=== PATIENT | female | born 1935 | race African-American/Black ===

== ENCOUNTER 2016-06-07 13:32 | Emergency (ER) | payer OTHER ==
[2016-06-07] MEDS ORDERED: NS 500 ML IV ONE (14:34)
--- NOTE | 2016-06-07 14:39 | PROVIDER DOCUMENTATION ---
HPI-Abdominal Pain/GI Problem - General Chief Complaint: Abdominal Pain Stated Complaint: abd pain Time Seen by Provider: 06/07/16 14:27 Allergies/Adverse Reactions: Patient Allergies Allergy/AdvReac Type Severity Reaction Status Date / Time Sulfa (Sulfonamide Allergy RASH Verified 06/07/16 15:12 Antibiotics) Home Medications: Home Medication List Medication Instructions Recorded Confirmed Last Taken Type Losartan [Cozaar] 100 mg PO DAILY 01/23/15 06/07/16 06/07/16 History Ferrous Sulfate 325 mg PO DAILY 02/12/15 06/07/16 06/07/16 History Metformin [Glucophage] 500 mg PO DAILY 02/12/15 06/07/16 06/07/16 History ROSUVAstatin [Crestor] 10 mg PO DAILY 02/12/15 06/07/16 06/07/16 History Docusate Sodium [Colace] 100 mg PO BID #30 capsule 02/20/15 06/07/16 Unknown Rx Hydrocodone/APAP 7.5 mg/325 mg 1 each PO Q4H PRN PRN #30 tablet 02/20/15 Unknown Rx [[place]-7.5] Polyethylene Glycol 3350 [Miralax] 17 gm PO BID #30 powder, packet 02/20/15 Unknown Rx Potassium Chloride [Klor-Con 10 meq PO DAILY #30 capsule.er 02/20/15 06/07/16 Rx Sprinkle] Levothyroxine Sodium [Synthroid] 75 mcg PO DAILY 06/07/16 06/07/16 06/07/16 History Metoclopramide [Reglan] 10 mg PO AC + HS #40 tablet 06/07/16 Unknown Rx Omeprazole 40 mg PO DAILY #30 capsule. 06/07/16 Unknown Rx Sucralfate [Carafate] 1 gm PO 4XDAY #40 tablet 06/07/16 Unknown Rx - History of Present Illness-ABD Nature of Presenting Problems: Pt with epigastric abd pains for several months with diarrhea noted after eating. Today she had some pains and difficulty walking--has diffuse weakness still. No fevers, vomiting nor constipation. Abdominal Pain Onset Location: reports: epigastric Pain Radiation: reports: LUQ Quality of Pain: reports: aching, cramping Severity in ED: reports: mild Onset/Duration: reports: other Timing: reports: gone now, intermittent Associated Symptoms: reports: diarrhea, loss of appetite, weakness, trouble walking. denies: constipation, fever/chills, genitourinary problems, nausea, shortness of breath, vomiting Last BM: this morning Dark Stools Present?: reports: none noticed Similar Symptoms Previously?: Yes Recently seen or treated by another doctor?: No Review of Systems - Adult - REVIEW OF SYSTEMS - ADULT Constitutional: denies: chills, fever Eyes: reports: no symptoms reported Ears, Nose, Mouth & Throat: reports: no symptoms reported Cardiovascular: denies: chest pain, syncope Respiratory: denies: cough, shortness of breath Gastrointestinal: reports: abdominal pain, diarrhea. denies: hematemesis, constipation, nausea, rectal bleeding, vomiting Genitourinary: denies: dysuria, frequency Musculoskeletal: reports: muscle weakness. denies: back pain, joint pain Integumentary: reports: no symptoms reported Neurological: reports: other (weakness-non focal). denies: dizziness/vertigo, slurred speech, syncope Psychiatric: reports: no symptoms reported Endocrine: reports: no symptoms reported Hematologic/Lymphatic: reports: no symptoms reported Allergic/Immunologic: reports: no symptoms reported All Other Systems: Reviewed and Negative Past History - Adult - PAST MEDICAL HISTORY-ADULT Review of Records: reports: Nursing Assessment Review, Medications Reviewed Cardiovascular: reports: hyperlipidemia Respiratory: reports: asthma Gastrointestinal: reports: other (constipation) Endocrine/Immune: reports: thyroid disorder (hypo) - PRIOR SURGERIES/PROCEDURES Surgical/Procedure History: reports: cholecystectomy, hysterectomy - IMMUNIZATION STATUS Childhood Immunizations: See Nurse Assessment Flu Vaccine: See Nurse Assessment - SOCIAL HISTORY Smoking: non-smoker Physical Exam-General - PHYSICAL EXAM-ADULT Initial Vital Signs Reviewed: Yes - CONSTITUTIONAL General Appearance: appears well, alert, no apparent distress - EYES Eyes: PERRL/EOMI, pink conjunctivae - HEAD, EARS, NOSE, MOUTH & THROAT HENMT: normocephalic/atraumatic, moist mucous membranes, normal ENT inspection - NECK Neck: non-tender, full range of motion, supple - RESPIRATORY Respiratory: chest non-tender, lungs clear, normal breath sounds - CARDIOVASCULAR Cardiovascular: normal peripheral pulses, no edema, tachycardia - GASTROINTESTINAL (ABDOMEN) Abdominal Exam: normal bowel sounds, soft, no organomegaly, no pulsatile mass, tenderness (moderate LUQ, epigastric area). negative: distended, guarding, rigid, mass, Williamson's sign - LYMPHATIC Lymphatic: no adenopathy. negative: enlargement - MUSCULOSKELETAL Back Exam: normal inspection, no CVA tenderness, no vertebral tenderness Extremity: normal range of motion, non-tender, normal inspection - SKIN Integumentary: normal color, warm/dry, other (poor turgor) - NEUROLOGIC Neurologic: grossly normal. negative: facial droop, focal weakness - PSYCHIATRIC Psych/Mental Status: normal mood/affect Progress - PLAN OF CARE/RESULTS Progress/Plan/Lab Results: Vital Signs Temp Pulse Pulse Pulse Pulse Resp BP 06/07/16 17:09 98 F 78 20 124/63 06/07/16 14:56 101 H 103 H 104 H 06/07/16 13:36 98.0 F 113 H 20 107/91 BP BP BP Pulse Ox 06/07/16 17:09 100 06/07/16 14:56 128/65 131/54 115/62 06/07/16 13:36 98 Sulfa (Sulfonamide Antibiotics) Allergy (Verified 06/07/16 15:12) RASH Losartan [Cozaar] 100 mg PO DAILY 01/23/15 Ferrous Sulfate 325 mg PO DAILY 02/12/15 Metformin [Glucophage] 500 mg PO DAILY 02/12/15 ROSUVAstatin [Crestor] 10 mg PO DAILY 02/12/15 Docusate Sodium [Colace] 100 mg PO BID #30 capsule 02/20/15 Hydrocodone/APAP 7.5 mg/325 mg [[place]-7.5] 1 each PO Q4H PRN PRN #30 tablet 02/24 Polyethylene Glycol 3350 [Miralax] 17 gm PO BID #30 powder, packet 02/20/15 Potassium Chloride [Klor-Con Sprinkle] 10 meq PO DAILY #30 capsule.er 02/20/15 Levothyroxine Sodium [Synthroid] 75 mcg PO DAILY 06/07/16 I&O 06/06/16 06/07/16 06/08/16 06:59 06:59 06:59 Output Total 5 Balance -5 Laboratory 06/07/16 06/07/16 06/07/16 15:00 15:00 15:00 WBC 7.09 RBC 4.84 Hgb 13.3 Hct 36.7 L MCV 75.8 L MCH 27.5 MCHC 36.2 RDW Std Deviation 15.3 H Plt Count 333 MPV 9.1 Immature Gran % (Auto) 0.3 Neut % (Auto) 78.5 H Lymph % (Auto) 12.3 L [place] % (Auto) 7.8 Eos % (Auto) 0.8 Baso % (Auto) 0.3 Immature Gran # (Auto) 0.02 Neut # (Auto) 5.57 Lymph # (Auto) 0.87 L [place] # (Auto) 0.55 Eos # (Auto) 0.06 Baso # (Auto) 0.02 Sodium 138 Potassium 3.9 Chloride 98 Carbon Dioxide 27 Anion Gap 13 BUN 17 Creatinine 0.7 Estimated GFR/1.73 m2 > 60 BUN/Creatinine Ratio 24 Glucose 137 H Calculated Osmolality 279 Calcium 9.5 Total Bilirubin 0.25 AST 15 ALT 8 L Alkaline Phosphatase 84 Total Protein 7.4 Albumin 4.4 Globulin 3.0 Albumin/Globulin Ratio 1.5 Amylase 57 Lipase 56 Urine Source CLEAN CATCH Urine Color YELLOW Urine Clarity CLEAR Urine pH 5.5 Ur Specific [place] 1.025 Urine Protein NEGATIVE Urine Ketones NEGATIVE Urine Blood NEGATIVE Urine Nitrite NEGATIVE Urine Bilirubin NEGATIVE Urine Urobilinogen 0.2 Urine Microscopic RBC <10 Urine WBC NEGATIVE Urine Microscopic WBC <10 Ur Epithelial Cells <10 Urine Bacteria NEGATIVE Urine Glucose NEGATIVE - XRAY 1 XRAY Study: Chest, Abdomen Impression: Normal - CT/MRI 1 CT Study: Abdomen, Pelvis Impression: Abnormal (atrium gastritis), Discussed w/Radiology - CONSULTS/PCP/HOSPITALIST Notification #1 *Consult/PCP/Hospitalist*: Agata Time Discussed: 17:39 Consult Disposition: F/U in office Departure - Departure Time of Disposition Order: 17:39 DIAGNOSIS: Abdominal pain, epigastric Acute gastritis without bleeding Qualifiers: Gastritis type: unspecified gastritis Qualified Code(s): K29.00 - Acute gastritis without bleeding Disposition: HOME 01 Certified Medical Emergency: Emergent Condition: Stable Additional Instructions: See Dr Parmar this week. ED Follow Up Instructions: You have been treated by a care provider in the Emergency Department. These instructions are being provided to you so you can have an understanding of how to care for yourself upon discharge. Upon discharge from the Emergency Department, you are responsible for making arrangements for follow-up care by a physician of your choice. Take all prescribed medications as directed. Return to the Emergency Department immediately for any new or worsening symptoms. You may call the Physician Referral phone number at [phone] to obtain a list of Physicians who are taking new patients. Prescriptions: Sucralfate [Carafate] 1 gm PO 4XDAY #40 tablet Omeprazole 40 mg PO DAILY #30 capsule. Metoclopramide [Reglan] 10 mg PO AC + HS #40 tablet
--- NOTE | 2016-06-07 15:16 | Diag Imaging Result Document ---
PROCEDURE NAME: FLAT/UPRIGHT ABD/1 VIEW CHEST - 06/07/2016 FLAT AND UPRIGHT ABDOMEN: FINDINGS: There are surgical clips in the gallbladder fossa. There is calcification of the aorta which does not appear to be distended, but is tortuous. There is no evidence of bowel obstruction, organomegaly or mass. IMPRESSION: Nonspecific abdomen. AP UPRIGHT CHEST: FINDINGS: There are some grouped, nodular and ill-defined opacities in the left upper lobe. This was also present on 02/16/2015, and may be related to previous granulomatous disease. Otherwise, the lungs are clear and the heart and pulmonary vascularity are within normal limits. IMPRESSION: No acute disease.
[2016-06-07 15:17] LABS: MANUAL DIFF NEEDED? NO; URINE SOURCE CLEAN CATCH
[2016-06-07 15:24] LABS: BASO% 0.3 % (0.0-0.8); EOS# 0.06 X1000 (0.0-0.7); EOS% 0.8 % (0.0-10.0); HEMATOCRIT 36.7 % (37.0-47.0); HEMOGLOBIN 13.3 g/dL (12.0-16.0); IMM GRAN# 0.02 X1000 (0.0-0.04); IMM GRAN% 0.3 % (0.0-0.5); LYMPH# 0.87 X1000 (1.2-3.4); LYMPH% 12.3 % (20.5-51.1); MCH 27.5 PG (27-31); MCHC 36.2 g/dL (33-37); MCV 75.8 FL (81-99); MONO# 0.55 X1000 (0.11-0.59); MONO% 7.8 % (1.7-9.3); MPV 9.1 FL (7.4-10.4); NEUT% 78.5 % (42.2-75.2); PLT 333 X1000 (130-400); RBC 4.84 XMIL (4.2-5.4)
[2016-06-07 15:26] LABS: BILIRUBIN URINE NEGATIVE (NEGATIVE); BLOOD URINE NEGATIVE (NEGATIVE); CLARITY CLEAR (CLEAR); COLOR YELLOW; GLUCOSE URINE NEGATIVE (NEGATIVE); LEUKOCYTES URINE NEGATIVE (NEGATIVE); NITRITE URINE NEGATIVE (NEGATIVE); PH URINE 5.5; PROTEIN URINE NEGATIVE (NEGATIVE); SP GRAVITY URINE 1.025; UROBILINOGEN URINE 0.2 EU/dL (0.2-1.0)
[2016-06-07 15:33] LABS: URINE EPITHELIAL CELLS <10 /HPF (<10); URINE RBC <10 /HPF (<10); URINE WBC <10 /HPF (<10)
[2016-06-07 15:44] LABS: AGAP 13; ALBUMIN 4.4 g/dL (3.5-5.0); ALKALINE PHOSPHATASE 84 U/L (32-104); AMYLASE 57 U/L (20-200); BUN 17 mg/dL (8-22); CALCIUM 9.5 mg/dL (8.8-10.2); CHLORIDE 98 mmol/L (98-107); COSMO 279; GOT 15 U/L (10-30); GPT 8 U/L (10-36); LIPASE 56 U/L (13-60); POTASSIUM 3.9 mmol/L (3.5-5.1); SODIUM 138 mmol/L (136-145); TCO2 27 mmol/L (25-35); TOTAL BILIRUBIN 0.25 mg/dL (0.20-1.00); TOTAL PROTEIN 7.4 g/dL (6.3-8.3)
[2016-06-07 17:09] VITALS: BP 124/63
--- NOTE | 2016-06-07 17:24 | Diag Imaging Result Document ---
PROCEDURE NAME: ABDOMEN/PELVIS W/CONTRAST - 06/07/2016 CT OF THE ABDOMEN WITH INTRAVENOUS AND ORAL CONTRAST: FINDINGS: There is apparent fibrosis with some calcification in the right lower lobe. This may be residual from the pneumonia present on the previous CT of the chest dated 05/15/2013. The pleural effusions which were present at that time are no longer present. There are calcifications in the aorta. No evidence of aneurysm is present, and the mesenteric vessels are patent. There has been cholecystectomy. The spleen and adrenal glands are not enlarged. The pancreas is within normal limits. The kidneys are without evidence of hydronephrosis or mass. There is some biliary dilatation in the liver. This is more apparent than on the previous chest CT. There are no previous abdominal studies. The common bile duct does not appear to be distended and at the level of the pancreatic head measures only 4 mm. There is some retained food in the stomach. There is some apparent thickening of the gastric mucosa in the antrum. The small bowel is not distended, and there is no evidence of obstruction or mucosal thickening in the colon. No significant adenopathy is present. CT OF THE PELVIS WITH INTRAVENOUS CONTRAST: FINDINGS: There is no evidence of appendicitis. There is marked sigmoid diverticulosis without definite evidence of diverticulitis. There has been hysterectomy. There is some stool in the rectosigmoid colon. IMPRESSION: 1. Possible antral gastritis. 2. Intrahepatic biliary dilatation of uncertain significance.
[2016-06-07] MEDS ORDERED: SODIUM CHLORIDE 0.9% INJ ONE (17:44)
[2016-06-07] MEDS ORDERED: PROTONIX IV ONE (17:44)
== END 2016-06-07 17:55 | disposition home or self-care (01) ==
LOC: ED 13:32
DX: K29.00 Acute gastritis without bleeding (principal); R10.13 Epigastric pain; R10.12 Left upper quadrant pain; R19.7 Diarrhea, unspecified; M62.81 Muscle weakness (generalized); E78.5 Hyperlipidemia, unspecified; E03.9 Hypothyroidism, unspecified; R00.0 Tachycardia, unspecified; Z79.899 Other long term (current) drug therapy
CPT/HCPCS: 74022; 74177; 80053; 81001; 82150; 83690; 85025; J7040; Q9967

== ENCOUNTER 2018-07-07 14:35 | Inpatient (IN) ==
[2018-07-07] MEDS ORDERED: ASPIRIN PO ONE (14:46)
--- NOTE | 2018-07-07 14:49 | EKG Report ---
Test Performed on : 07/07/2018 2:43:13 PM Test Reason : cp Blood Pressure : / mmHG Vent. Rate : 106 BPM Atrial Rate : 106 BPM P-R Int : 174 ms QRS Dur : 116 ms QT Int : 348 ms P-R-T Axes : 053 -14 051 degrees QTc Int : 462 ms Sinus tachycardia. with occasional premature ventricular complexes. Possible Left atrial enlargement Septal infarct , age undetermined ST & T wave abnormality, consider lateral ischemia Abnormal ECG When compared with ECG of 15-FEB-2018 14:25, premature ventricular complexes. are now present Left bundle branch block is no longer present Septal infarct is now present Unconfirmed Result
--- NOTE | 2018-07-07 15:08 | Diag Imaging Result Doc PS360 ---
EXAM: CHEST-2 VIEWS 07/07/2018 HISTORY: cp TECHNIQUE: Two views the chest COMMENT: There is nodular and linear opacity in the left upper lobe which is similar in appearance to 02/13/2018. There may be COPD. The heart size and pulmonary vascularity are within normal limits. IMPRESSION: Chronic left upper lobe opacities. Electronically signed by Ramone Akins 07/07/2018 3:06 PM
[2018-07-07] MEDS ORDERED: DUONEB (A & A) INH ONE (15:22)
[2018-07-07] MEDS ORDERED: MAGNESIUM SULFATE 1 GM/D5W 1 GM/100 ML IVPB IV ONE (15:22)
[2018-07-07 15:25] LABS: BASO# 0.03 X1000 (0.0-0.2); BASO% 0.5 % (0.0-0.8); EOS# 0.07 X1000 (0.0-0.7); EOS% 1.1 % (0.0-10.0); HEMATOCRIT 36.5 % (37.0-47.0); HEMOGLOBIN 12.8 g/dL (12.0-16.0); IMM GRAN# 0.01 X1000 (0.0-0.04); IMM GRAN% 0.2 % (0.0-0.5); LYMPH# 1.11 X1000 (1.2-3.4); LYMPH% 17.7 % (20.5-51.1); MCH 27.8 PG (27-31); MCHC 35.1 g/dL (33-37); MCV 79.2 FL (81-99); MONO# 0.49 X1000 (0.11-0.59); MONO% 7.8 % (1.7-9.3); MPV 9.7 FL (7.4-10.4); NEUT# 4.57 X1000 (1.4-6.5); NEUT% 72.7 % (42.2-75.2); PLT 298 X1000 (130-400); RBC 4.61 XMIL (4.2-5.4); RDW 15.5 % (11.5-14.5); WBC 6.28 X1000 (4.8-10.8)
[2018-07-07] MEDS ORDERED: SOLU-MEDROL IV SCH (15:30)
[2018-07-07 15:37] LABS: AGAP 11; ALBUMIN 4.1 g/dL (3.5-5.0); ALKALINE PHOSPHATASE 137 U/L (32-104); BUN 12 mg/dL (8-22); CALCIUM 8.8 mg/dL (8.8-10.2); CHLORIDE 100 mmol/L (98-107); CK PROFILE 82 U/L (24-173); COSMO 290; CREATININE 0.8 mg/dL (0.5-0.9); ESTIMATED GFR > 60; GLUCOSE 253 mg/dL (70-104); GOT 12 U/L (10-30); GPT 9 U/L (10-36); POTASSIUM 4.5 mmol/L (3.5-5.1); SODIUM 141 mmol/L (136-145); TCO2 29 mmol/L (25-35); TOTAL PROTEIN 7.2 g/dL (6.3-8.3)
[2018-07-07 15:38] LABS: INR 0.85
[2018-07-07 15:39] LABS: PTT 32.8 Seconds (22.3-41.8)
--- NOTE | 2018-07-07 16:10 | PROVIDER DOCUMENTATION ---
This chart was entered by Deidre Skaggs Scribe, acting as scribe for Emperatriz Casarez MD. HPI-Chest Pain - General Chief Complaint: Chest Pain Stated Complaint: CHEST PAIN Time Seen by Provider: 07/07/18 15:14 Source: patient Allergies/Adverse Reactions: Patient Allergies Allergy/AdvReac Type Severity Reaction Status Date / Time Sulfa (Sulfonamide Allergy RASH Verified 07/07/18 14:45 Antibiotics) Home Medications: Home Medication List Medication Instructions Recorded Confirmed Last Taken Type Losartan [Cozaar] 100 mg PO DAILY 01/23/15 02/12/18 06/07/16 History ROSUVAstatin [Crestor] 10 mg PO QHS 02/12/15 02/12/18 06/07/16 History Albuterol Sulfate [Ventolin Hfa] 2 inh INH PRN PRN 02/12/18 02/12/18 Unknown History Azithromycin 500 mg PO DAILY 02/12/18 02/12/18 Unknown History Docusate Sodium [Colace] 100 mg PO TID 02/12/18 02/12/18 Unknown History Glimepiride 1 mg PO DAILY 02/12/18 02/12/18 Unknown History Levothyroxine [Synthroid] 125 microgm PO DAILY@0600 02/12/18 02/12/18 Unknown History Omeprazole 40 mg PO DAILY@0600 02/12/18 02/12/18 Unknown History Potassium Chloride 20 meq PO DAILY 02/12/18 02/12/18 Unknown History - History of Present Illness-CP Nature of Presenting Problem: Patient is a 80 year old female who presents to the ED with chest pain. Patient states shortness of breath and cough. Patient states symptoms started this afternoon. Patient's son states history of asthma and chronic bronchitis. Location: reports: central Chest Pain Radiation: reports: no radiation Quality of Pain: reports: tightness Severity in ED: mild Onset/Duration: this afternoon Timing: still present Context/Activities at Onset: reports: light activity Associated Symptoms: reports: shortness of breath Similar Symptoms Previously?: No Recently Seen Here or By Another Healthcare Provider: No Review of Systems - Adult - REVIEW OF SYSTEMS - ADULT Constitutional: reports: no symptoms reported Eyes: reports: no symptoms reported Ears, Nose, Mouth & Throat: reports: no symptoms reported Cardiovascular: reports: chest pain. denies: heart murmur, irregular heart rate Respiratory: reports: cough, shortness of breath. denies: wheezing Gastrointestinal: reports: no symptoms reported Genitourinary: reports: no symptoms reported Musculoskeletal: reports: no symptoms reported Integumentary: reports: no symptoms reported Neurological: reports: no symptoms reported Psychiatric: reports: no symptoms reported Endocrine: reports: no symptoms reported Hematologic/Lymphatic: reports: no symptoms reported Allergic/Immunologic: reports: no symptoms reported All Other Systems: Reviewed and Negative Past History - Adult - PAST MEDICAL HISTORY-ADULT Review of Records: reports: Nursing Assessment Review, Medications Reviewed, Social history reviewed & non-contributory. Major Childhood Illnesses: reports: denies history Cardiovascular: reports: HTN, hyperlipidemia Respiratory: reports: asthma, bronchitis Gastrointestinal: reports: other (constipation) Obstetrical/Gynecological: reports: denies history Genitourinary: reports: denies history Musculoskeletal: reports: denies history Neurological: reports: denies history Endocrine/Immune: reports: Diabetes, thyroid disorder (hypo) Other Conditions: reports: denies history - PRIOR SURGERIES/PROCEDURES Surgical/Procedure History: reports: cholecystectomy, hysterectomy - PRIOR HOSPITALIZATIONS Prior Hospitalizations: reports: none - IMMUNIZATION STATUS Childhood Immunizations: See Nurse Assessment Flu Vaccine: See Nurse Assessment - FAMILY HISTORY Family History: reviewed, not pertinent - SOCIAL HISTORY Smoking: cigarettes (former) Substance Use: denies Physical Exam-General - PHYSICAL EXAM-ADULT Initial Vital Signs Reviewed: Yes - CONSTITUTIONAL General Appearance: appears well, alert, no apparent distress - EYES Eyes: pink conjunctivae - HEAD, EARS, NOSE, MOUTH & THROAT HENMT: moist mucous membranes - NECK Neck: full range of motion, supple - RESPIRATORY Respiratory: chest non-tender, no pleuratic chest pain, no respiratory distress, no accessory muscle use - CARDIOVASCULAR Cardiovascular: other (pt has loud resonance on left side, normal right side) - GASTROINTESTINAL (ABDOMEN) Abdominal Exam: non tender, soft - LYMPHATIC Lymphatic: no adenopathy - MUSCULOSKELETAL Back Exam: normal inspection Extremity: normal range of motion Peripheral Pulses: radial (R): 2+, radial (L): 2+ - SKIN Integumentary: normal color, normal turgor, warm/dry - NEUROLOGIC Neurologic: grossly normal, no motor/sensory deficits - PSYCHIATRIC Psych/Mental Status: normal mood/affect, normal thought content, normal thought process, oriented x 3 Progress - PLAN OF CARE/RESULTS Progress/Plan/Lab Results: Vital Signs - 8 hr 07/07/18 14:41 07/07/18 15:34 07/07/18 15:57 Temperature 98.8 F Pulse Rate 106 H 100 H 101 H Respiratory Rate 20 30 H 29 H Blood Pressure 158/77 150/70 O2 Sat by Pulse Oximetry 98 97 Laboratory Results - last 24 hr 07/07/18 07/07/18 07/07/18 14:55 14:55 14:55 WBC 6.28 RBC 4.61 Hgb 12.8 Hct 36.5 L MCV 79.2 L MCH 27.8 MCHC 35.1 RDW Std Deviation 15.5 H Plt Count 298 MPV 9.7 Immature Gran % (Auto) 0.2 Neut % (Auto) 72.7 Lymph % (Auto) 17.7 L [place] % (Auto) 7.8 Eos % (Auto) 1.1 Baso % (Auto) 0.5 Immature Gran # (Auto) 0.01 Neut # (Auto) 4.57 Lymph # (Auto) 1.11 L [place] # (Auto) 0.49 Eos # (Auto) 0.07 Baso # (Auto) 0.03 PT INR PTT (Actin FS) Sodium 141 Potassium 4.5 Chloride 100 Carbon Dioxide 29 Anion Gap 11 BUN 12 Creatinine 0.8 Estimated GFR/1.73 m2 > 60 BUN/Creatinine Ratio 15 Glucose 253 H Calculated Osmolality 290 Calcium 8.8 Total Bilirubin 0.20 AST 12 ALT 9 L Alkaline Phosphatase 137 H Creatine Kinase 82 Troponin T [id number] Pept 166 Total Protein 7.2 Albumin 4.1 Globulin 3.0 Albumin/Globulin Ratio 1.0 07/07/18 07/07/18 14:55 14:55 WBC RBC Hgb Hct MCV MCH MCHC RDW Std Deviation Plt Count MPV Immature Gran % (Auto) Neut % (Auto) Lymph % (Auto) [place] % (Auto) Eos % (Auto) Baso % (Auto) Immature Gran # (Auto) Neut # (Auto) Lymph # (Auto) [place] # (Auto) Eos # (Auto) Baso # (Auto) PT 12.0 INR 0.85 PTT (Actin FS) 32.8 Sodium Potassium Chloride Carbon Dioxide Anion Gap BUN Creatinine Estimated GFR/1.73 m2 BUN/Creatinine Ratio Glucose Calculated Osmolality Calcium Total Bilirubin AST ALT Alkaline Phosphatase Creatine Kinase Troponin T < 0.010 [id number] Pept Total Protein Albumin Globulin Albumin/Globulin Ratio Orders Category Date Time Status Cardiac Monitoring DIRECTED Care 07/07/18 14:46 Active Saline Loc NOW Care 07/07/18 14:46 Active CHEST-2 VIEWS [RAD] Stat Exams 07/07/18 14:46 Completed CBC WITH ELECTRONIC DIFF [HEME] Stat Lab 07/07/18 14:55 Completed CK PROFILE [SP CHEM] Stat Lab 07/07/18 14:55 Completed COMPREHENSIVE METABOLIC PANEL [CHEM] Stat Lab 07/07/18 14:55 Completed PRO B-NATRIURETIC PEPTIDE Stat Lab 07/07/18 14:55 Completed PROTIME WITH INR [COAG] Stat Lab 07/07/18 14:55 Completed PTT [COAG] Stat Lab 07/07/18 14:55 Completed TROPONIN T Stat Lab 07/07/18 14:55 Completed Albuterol 2.5MG/Ipratrop 0.5MG [Duoneb (A & A)] Med 07/07/18 15:22 Discontinued 3 ml INH NOW ONE Aspirin Med 07/07/18 14:46 Discontinued 325 mg PO NOW ONE Magnesium Sulfate 1 gm/D5w Med 07/07/18 15:22 Discontinued 1 gm in 100 ml IV NOW Methylprednisolone Sod Succ [Solu-Medrol] Med 07/07/18 15:30 Active 60 mg IV Q6H Aerosol Treatments Routine Oth 07/07/18 15:22 Completed Aerosol Treatments Stat Oth 07/07/18 15:22 Completed CP/SOB/Palp >45 yrs of Age Stat Oth 07/07/18 14:46 Ordered EKG [EKG] Stat Ther 07/07/18 14:46 Draft granddaughter is in the room now, she gives the patient her meds and pays attention to her response, she said her grandmother has had this before post albuterol and is comfortable after the d/w them both re the results, of taking her home and f/u w PCP in 3 to 5 days. Result Diagrams: 07/07/18 14:55 07/07/18 14:55 - EKG 1 Time of EKG reading by physician:: 14:43 EKG Read and Signed by:: Emperatriz Casarez EKG Interpretation (*Must complete 3 of following elements*): Abnormal (ST & T wave abnormality, consider lateral ischemia) Rate: 106 Rhythm: sinus tachycardia with occasional premature ventricular complexes [place] Interval: normal Comments: possible left atrial enlargement; septal infarct, age undetermined - XRAY 1 XRAY Study: Chest Impression: See EMR Report (EXAM: CHEST-2 VIEWS 07/07/2018 HISTORY: cp TECHNIQUE: Two views the chest COMMENT: There is nodular and linear opacity in the left upper lobe which is similar in appearance to 02/13/2018. There may be COPD. The heart size and pulmonary vascularity are within normal limits. IM PRESSION: Chronic left upper lobe opacities. Electronically signed by Ramone Akins 07/07/2018 3:06 PM 07/07/18 1504 Interpreting Physician: Ramone Akins MD Dictated Date/Time: 07/07/18 1509 cc: Emperatriz Casarez MD;) Departure - Departure Date of Disposition Decision: 07/07/18 Time of Disposition Decision: 17:31 DIAGNOSIS: Shortness of breath, Chest pain Disposition: HOME 01 Certified Medical Emergency: Emergent Condition: Good Additional Freetext Instructions: Follow up with Dr Catalan in 3 to 5 days. Continue all medications. Referrals and Follow-Ups: Bashir Parmar MD [Primary Care Provider] - - Critical Care Note This patient required my direct & personal management of CC.: No Attestation - Physician/ DELPHINE Attestation The physician spent face to face time with patient:: Yes Advanced Practice Provider documentation review:: Supervising physician onsite and consulted in the evaluation and care of this patient. The physician did have a face to face encounter with the patient. This chart was documented by the indicated scribe, (Deidre Skaggs Scribe) and accurately reflects the services I performed and decisions made by me, Emperatriz Casarez MD, as attested by the provider's signature.
[2018-07-07] MEDS ORDERED: LR 1,000 ML IV ONE (18:21)
[2018-07-07 21:36] LABS: BILIRUBIN URINE NEGATIVE (NEGATIVE); BLOOD URINE NEGATIVE (NEGATIVE); CLARITY CLEAR (CLEAR); COLOR YELLOW; GLUCOSE URINE NEGATIVE (NEGATIVE); KETONE URINE NEGATIVE (NEGATIVE); LEUKOCYTES URINE 1+ (NEGATIVE); NITRITE URINE NEGATIVE (NEGATIVE); PROTEIN URINE NEGATIVE (NEGATIVE); UROBILINOGEN URINE NORMAL
[2018-07-07 21:45] LABS: URINE BACTERIA 1+ /HFP; URINE EPITHELIAL CELLS >10 /HPF (<10); URINE RBC <10 /HPF (<10); URINE SOURCE CLEAN CATCH
[2018-07-07 21:46] LABS: URINE CAST NONE SEEN /LPF; URINE CRYSTAL NONE SEEN /HPF; URINE YEAST NONE SEEN /HPF
[2018-07-07] MEDS: ATIVAN PO SCH (22:16)
[2018-07-07] MEDS: NS 1,000 ML IV SCH (22:16)
[2018-07-08] MEDS: DUONEB (A & A) INH PRN ×2 (04:05→12:39)
[2018-07-08] MEDS ORDERED: SYNTHROID PO SCH (06:00)
[2018-07-08] MEDS: CRESTOR PO SCH (08:12)
[2018-07-08] MEDS: COZAAR PO SCH (08:12)
[2018-07-08] MEDS: AMARYL PO SCH (08:12)
[2018-07-08] MEDS: COLACE PO SCH ×3 (08:13→18:02)
[2018-07-08] MEDS: SYNTHROID PO SCH ×2 (08:13)
[2018-07-08] MEDS: KLOR-CON PO SCH (08:13)
[2018-07-08] MEDS: NS 1,000 ML IV SCH (11:40)
[2018-07-08] MEDS ORDERED: MOBIC PO ONE (14:28)
[2018-07-08 14:50] LABS: HEMOGLOBIN A1C 7.7 % (4.8-6.0)
[2018-07-08] MEDS: ATIVAN PO SCH (21:40)
[2018-07-09] MEDS: NS 1,000 ML IV SCH ×4 (01:14→20:47)
[2018-07-09] MEDS: SYNTHROID PO SCH ×2 (06:13)
[2018-07-09] MEDS: KLOR-CON PO SCH (08:43)
[2018-07-09] MEDS: COLACE PO SCH ×3 (08:43→16:08)
[2018-07-09] MEDS: COZAAR PO SCH (08:43)
[2018-07-09] MEDS: AMARYL PO SCH (08:43)
[2018-07-09] MEDS: CRESTOR PO SCH (08:44)
[2018-07-09] MEDS: DUONEB (A & A) INH PRN ×2 (12:04→19:26)
[2018-07-09] MEDS ORDERED: DEPO-MEDROL INJ ONE (13:00)
[2018-07-09] MEDS ORDERED: XYLOCAINE-MPF 2% INJ ONE (13:00)
[2018-07-09 19:13] LABS: HEMATOCRIT 31.3 % (37.0-47.0); HEMOGLOBIN 11.3 g/dL (12.0-16.0); MCH 28.3 PG (27-31); MCHC 36.1 g/dL (33-37); MCV 78.3 FL (81-99); MPV 8.6 FL (7.4-10.4); RDW 15.3 % (11.5-14.5); WBC 5.49 X1000 (4.8-10.8)
[2018-07-09 19:29] LABS: AGAP 10; ALBUMIN 3.4 g/dL (3.5-5.0); ALKALINE PHOSPHATASE 87 U/L (32-104); BUN 13 mg/dL (8-22); CALCIUM 8.3 mg/dL (8.8-10.2); CHLORIDE 102 mmol/L (98-107); COSMO 286; CREATININE 0.6 mg/dL (0.5-0.9); ESTIMATED GFR > 60; GLUCOSE 286 mg/dL (70-104); GOT 11 U/L (10-30); GPT 7 U/L (10-36); POTASSIUM 4.4 mmol/L (3.5-5.1); SODIUM 138 mmol/L (136-145); TCO2 26 mmol/L (25-35); TOTAL PROTEIN 5.7 g/dL (6.3-8.3)
[2018-07-09] MEDS: ATIVAN PO SCH (20:39)
[2018-07-10] MEDS: NS 1,000 ML IV SCH (04:46)
[2018-07-10] MEDS: SYNTHROID PO SCH ×2 (06:21)
[2018-07-10] MEDS: AMARYL PO SCH (08:25)
[2018-07-10] MEDS: COZAAR PO SCH (08:25)
[2018-07-10] MEDS: KLOR-CON PO SCH (08:25)
[2018-07-10] MEDS: CRESTOR PO SCH (08:25)
--- NOTE | 2018-07-10 16:27 | PROGRESS NOTE ---
DATE: 07/09/2018 Today, she continued to have problems with her right knee and we injected her knee with Depo- Medrol 40 and Xylocaine towards the end of the shift with hopes that she would be able to ambulate as it seemed that her problem was her knee giving out. She additionally has, here on 07/09/3028 labs, white count was 5.49, hematocrit was 31.3, platelet count was 235,000. Her sodium was 138, potassium 4.4, chloride 102, carbon dioxide 26, BUN 13, creatinine 0.6, GFR greater than 60, glucose was 286. Hemoglobin A1c previously had been 7.7. Her albumin is 3.4. We will see what these shots do for her. cc: Bashir Parmar MD
--- NOTE | 2018-07-10 16:31 | PROGRESS NOTE ---
DATE: 07/10/2018 Ms. Zayas continues to do well. Her vital signs today: She is afebrile, pulse is 86, respiratory rate of 20, blood pressure 155/65, O2 saturation of 97% on room air. However, she continues to have some issues on standing, in spite of the shots she got in her knee yesterday. She seems to give to her hip and her knee. The nursing staff, however, says that she seems to get up and walk holding on to the beds to the bathroom on her own, two feet. Tried to talk to family. Family is not there and supposedly someone had called and said that the patient agreed to go to rehab and they want her to stay to get admitted to rehab. cc: Bashir Parmar MD
--- NOTE | 2018-07-10 16:34 | PROGRESS NOTE ---
DATE: 07/08/2018 VITAL SIGNS: Temperature was 98, pulse was 82, respiratory rate was 20, blood pressure 151/71, O2 saturation was 96%. She has been having some diarrhea issues. Per nursing staff, she has had five loose bowel movements today. Seems to be the same, no significant respiratory distress. She seems to be better. Her family is not anywhere around but we are going to try to start walking her around. She has been lying in bed the whole time she has been here without a fever. cc: Bashir Parmar MD
--- NOTE | 2018-07-10 16:35 | Diag Imaging Result Doc PS360 ---
EXAM: XRAY PELVIS W/HIP 2-3VW RT HISTORY: fall TECHNIQUE: Pelvis and right hip, three views COMPARISON: None. FINDINGS: No fracture. No dislocation. IMPRESSION: No acute bony injury. Electronically signed by Gagandeep Lema 07/10/2018 4:33 PM
[2018-07-10] MEDS: ATIVAN PO SCH (20:36)
[2018-07-11] MEDS: DUONEB (A & A) INH PRN (03:40)
[2018-07-11] MEDS: SYNTHROID PO SCH ×2 (06:12)
[2018-07-11] MEDS: AMARYL PO SCH (09:19)
[2018-07-11] MEDS: KLOR-CON PO SCH (09:19)
[2018-07-11] MEDS: COZAAR PO SCH (09:19)
[2018-07-11] MEDS: CRESTOR PO SCH (09:19)
[2018-07-11 11:29] LABS: HEMATOCRIT 33.4 % (37.0-47.0); HEMOGLOBIN 11.9 g/dL (12.0-16.0); MCH 27.9 PG (27-31); MCHC 35.6 g/dL (33-37); MCV 78.2 FL (81-99); MPV 8.5 FL (7.4-10.4); RBC 4.27 XMIL (4.2-5.4); RDW 15.4 % (11.5-14.5); WBC 6.12 X1000 (4.8-10.8)
[2018-07-11 11:54] VITALS: BP 155/70
[2018-07-11 11:59] LABS: AGAP 8; ALBUMIN 3.6 g/dL (3.5-5.0); ALKALINE PHOSPHATASE 83 U/L (32-104); BUN 9 mg/dL (8-22); CALCIUM 8.7 mg/dL (8.8-10.2); CHLORIDE 102 mmol/L (98-107); COSMO 278; CREATININE 0.7 mg/dL (0.5-0.9); ESTIMATED GFR > 60; GLUCOSE 100 mg/dL (70-104); GOT 12 U/L (10-30); GPT 8 U/L (10-36); POTASSIUM 3.8 mmol/L (3.5-5.1); SODIUM 140 mmol/L (136-145); TCO2 30 mmol/L (25-35); TOTAL PROTEIN 6.3 g/dL (6.3-8.3)
--- NOTE | 2018-07-11 13:25 | HISTORY AND PHYSICAL ---
HISTORY OF PRESENT ILLNESS: This is an 80-year-old female who is a regular clinic patient of [facility] who I follow for hypertension, dyslipidemia, COPD, diabetes, thyroid hormone replacement. She has an allergy to sulfa drugs, and she is currently on Cozaar 100 mg daily, Crestor 10 daily, albuterol 2 inhalations p.r.n. b.i.d. She takes docusate 100 mg t.i.d. p.r.n., glimepiride 1 mg daily, levothyroxine 125 mcg daily, omeprazole 40 daily, and has taken some potassium off and on in the past. She presented to the emergency room. She is a poor historian. Complaining of chest pain associated with some shortness of breath and cough. The symptoms all began this afternoon, for what it is worth. The patient's son states she has a history of asthma and chronic bronchitis. The pain was centrally located tightness associated with light activity and shortness of breath. This is unfamiliar to her. In the ER, she had a temperature of 98.8, pulse was 106, respiratory rate 20, blood pressure was 158/77. Repeat vital signs in the ER showed pulse rate of 101, respiratory rate 29, blood pressure 150/70, O2 saturation was maintained at 98% and 97%. Her white count on admission was 6280, hematocrit was 36.5 with microcytic indices, platelet count was 298. Her differential was 72.7 neutrophils, 17.7 lymphs and 7.8 monos. Her sodium was 141, potassium 4.5, chloride 100, CO2 of 29, BUN was 12, creatinine 0.8, GFR greater than 60, glucose 253. BUN and creatinine ratio was 15. Calculated osmolality was 290. Calcium 8.8. Total bilirubin was 0.2, AST was 12, ALT was 9, alkaline phosphatase 137. CK was 82. ProBNP was 166. Total protein 7.2, albumin 4.1, globulin was 3. Her troponin was less than 0.010. Her imaging included initial chest x-ray with nodular and linear opacifications in the left upper lobe which were similar in appearance to 02/13/2018. There may be COPD. Heart size and pulmonary vasculature within normal limits. Also during the hospital stay, she had issues about ambulating localizing to her knee on her right side that would buckle or to her hips. Some of this I think, according to the nursing staff, she walks well when I am not present, but the x-rays of her hip and pelvis with no acute bony abnormalities identified. She had a little bit of episodic diarrhea during the stay. They admitted her to the hospital. Later the daughter arrived and added some further information. The patient just gets up and sort of collapses, not losing consciousness and quickly gets over it. She did it in front of the granddaughter who said, yes, this is not normal. So with the atypical chest pain, they wanted to do some enzymes, and I think it is basically a placement issue for this family. REVIEW OF SYSTEMS: She denies any significant fever, chills or night sweats. She has had sort of a steady weight loss over the years. She weighs 45 kg. Eyes with no change in visual acuity. Ears, nose and throat: No pharyngitis, otitis or sinusitis. Cardiovascular: She has had atypical chest pain. Pulmonary: Shortness of breath, cough. History of probable asthma. Gastrointestinal: No nausea or vomiting. Diarrhea has lately been a problem. No blood. No melena. No nausea. No vomiting. No reflux. : No dysuria, hematuria, polyuria or pyuria. Musculoskeletal: Complains of her knee hurting from time to time when she gets in a certain situation, but there is no effusion, no heat, and x-rays were negative. Treating it symptomatically. Neurologic: No focal neurological deficit. Psychiatric: Negative. Somewhat demented, minimally so. Endocrine: No polyuria, polydipsia, heat or cold intolerance. Hematologic: No bleeding or clotting disorders. Allergic: Negative other than sulfa.f PAST MEDICAL HISTORY: The patient has had asthma and bronchitis regarding her lungs. History of hypertension, dyslipidemia, but no ischemic heart disease, congestive heart disease, valvular or electrical heart disease. Genitourinary: No history of any hematuria, kidney diseases or bladder problems. Musculoskeletal: She has had some chronic issues with mild rheumatism but no significant pathology. Neurologic: No issues of seizure activity or loss of consciousness. She gets weak at times. Endocrine: She has a touch of diabetes and replacement for thyroid disorder. She has had a previous cholecystectomy and hysterectomy. ADMISSION PHYSICAL EXAMINATION: HEENT: Head was normocephalic. Eyes were PERRL. EOMs intact. Nares patent. Oropharynx negative. NECK: Without bruits. Without thyromegaly. Midline trachea. No lymphadenopathy. CHEST: Bilateral breath sounds. No significant wheezing or consolidative features. CARDIOVASCULAR: Regular rate and rhythm. ABDOMEN: Soft. No hepatosplenomegaly. No CVA tenderness. EXTREMITIES: Negative for clubbing, cyanosis and edema. NEUROLOGICAL: Intact. ADMITTING DIAGNOSES: 1. Type 2 diabetes. 2. Thyroid hormone replacement. 3. Asthma. 4. Weak spells associated with pain in her knee and her hip on the right. 5. She has intermittently had some diarrhea, but I think mostly she lives alone, and I think she needs to have some rehab to see if she can continue to do so. She has been getting around in the hospital on her own but using bed and bedside tables to maneuver. She was admitted. We will follow some enzymes. cc: Bashir Parmar MD
--- NOTE | 2018-07-11 13:31 | DISCHARGE SUMMARY ---
ADMISSION DATE: 07/07/2018 DISCHARGE DATE: 07/11/2018 HISTORY OF PRESENT ILLNESS: This is a patient of mine who has a history of hypertension, thyroid hormone replacement, mild diabetes and hyperlipidemia with a previous cholecystectomy and hysterectomy who lives alone, ex-smoker who presented because of some weak spells, brought in by her family, not well described. She stands up and just collapses and "just simply her joints give out" not so much collapsing because of a neurological event. She sort of blamed it on her knee and hip. X-rays of them were negative. I actually gave her a shot in her knee to see if that would make any difference in the right knee, Solu-Medrol with Xylocaine. It helped the knee but her hip would sort of give. X-rays of the hip did not show any significant pathology. I think basically she has some mild asthma. Her hypertension has not really been complicated. Thyroid and diabetes are well controlled. She is having an issue getting about and falling and I think needs some rehab to see if she can, in fact, live alone. Her medications seem to be relatively unchanged and while she was in the hospital her medications include albuterol treatments that she uses p.r.n. She got some steroids to begin with 60 mg IV q.6 hours and thyroid replacement, lorazepam for some anxiety, glimepiride for her diabetes that is generally not a problem, losartan for her pressure and Crestor. She had the one injection as previously mentioned. I think she is a good candidate for rehab. I think with some devices she will be able to maintain her solo status at home, but that remains to be seen. cc: Bashir Parmar MD
== END 2018-07-11 14:45 | DRG 203 ==
LOC: P.ED 14:35 → P.MEDSURG 20:18
PROVIDERS: ADMIT Internal Medicine; ATTEND Internal Medicine
CPT/HCPCS: 71020; 71046; 73502; 80053; 81001; 82550; 83036; 83880; 84484; 85025; 85027; 85610; 85730; 87088; 93005; 94640; 94761; 96361; 96365; 96375; 99285; A9270; J1030; J2930; J3475; J7030; J7120

== ENCOUNTER 2019-01-19 13:41 | Inpatient (IN) ==
--- NOTE | 2019-01-19 14:19 | EKG Report ---
Test Performed on : 01/19/2019 1:59:26 PM Test Reason : CP Blood Pressure : / mmHG Vent. Rate : 093 BPM Atrial Rate : 093 BPM P-R Int : 186 ms QRS Dur : 114 ms QT Int : 392 ms P-R-T Axes : 064 -13 057 degrees QTc Int : 487 ms Normal sinus rhythm. Possible Left atrial enlargement Incomplete left bundle branch block Nonspecific T wave abnormality Prolonged QT Abnormal ECG When compared with ECG of 07-JUL-2018 14:43, premature ventricular complexes. are no longer present Unconfirmed Result
--- NOTE | 2019-01-19 14:22 | Diag Imaging Result Doc PS360 ---
EXAM: CHEST-2 VIEWS HISTORY: CP TECHNIQUE: Two views COMPARISON: 08/24/2018 FINDINGS: The lungs are hyperexpanded. The heart is not enlarged. The vessels are small. There are no infiltrates. No pleural effusions. Nodule in the mid left lung with scarring has an appearance similar to the prior study IMPRESSION: No acute abnormality. Electronically signed by Gagandeep Lema 01/19/2019 2:20 PM
[2019-01-19 14:31] LABS: BASO# 0.03 X1000 (0.0-0.2); BASO% 0.5 % (0.0-0.8); EOS# 0.07 X1000 (0.0-0.7); EOS% 1.1 % (0.0-10.0); HEMOGLOBIN 12.9 g/dL (12.0-16.0); IMM GRAN# 0.01 X1000 (0.0-0.04); IMM GRAN% 0.2 % (0.0-0.5); LYMPH# 0.92 X1000 (1.2-3.4); LYMPH% 14.3 % (20.5-51.1); MCH 27.9 PG (27-31); MCHC 34.9 g/dL (33-37); MCV 80.1 FL (81-99); MONO# 0.47 X1000 (0.11-0.59); MONO% 7.3 % (1.7-9.3); MPV 9.2 FL (7.4-10.4); NEUT# 4.94 X1000 (1.4-6.5); NEUT% 76.6 % (42.2-75.2); PLT 270 X1000 (130-400); RBC 4.62 XMIL (4.2-5.4); WBC 6.44 X1000 (4.8-10.8)
[2019-01-19 14:48] LABS: INR 0.94
[2019-01-19 14:49] LABS: PTT 32.6 Seconds (22.3-41.8)
--- NOTE | 2019-01-19 14:53 | PROVIDER DOCUMENTATION ---
This chart was entered by Deidre Skaggs Scribe, acting as scribe for Joanie Perez CRNP. HPI-Chest Pain - General Source: patient - History of Present Illness-CP Location: reports: central Chest Pain Radiation: reports: no radiation Quality of Pain: reports: other ("hurts") Severity in ED: mild Onset/Duration: this morning Timing: still present Context/Activities at Onset: reports: light activity Associated Symptoms: reports: nausea, shortness of breath Similar Symptoms Previously?: No Recently Seen Here or By Another Healthcare Provider: No <Joanie Perez - Last Filed: 01/19/19 15:28> <Pao Glez - Last Filed: 01/19/19 16:56> - General Chief Complaint: Chest Pain Stated Complaint: CHEST PAINS Time Seen by Provider: 01/19/19 14:06 Allergies/Adverse Reactions: Patient Allergies Allergy/AdvReac Type Severity Reaction Status Date / Time Sulfa (Sulfonamide Allergy RASH Verified 01/19/19 13:50 Antibiotics) Home Medications: Home Medication List Medication Instructions Recorded Confirmed Last Taken Type Losartan [Cozaar] 100 mg PO DAILY 01/23/15 01/19/19 06/07/16 History ROSUVAstatin [Crestor] 10 mg PO DAILY 02/12/15 01/19/19 06/07/16 History Albuterol Sulfate [Ventolin Hfa] 2 inh INH PRN PRN 02/12/18 01/19/19 Unknown History Glimepiride 1 mg PO DAILY 02/12/18 01/19/19 Unknown History Levothyroxine [Synthroid] 125 microgm PO DAILY@0600 02/12/18 01/19/19 Unknown History Potassium Chloride 20 meq PO DAILY 02/12/18 01/19/19 Unknown History Lorazepam 0.25 mg PO QHS 07/07/18 01/19/19 Unknown History - History of Present Illness-CP Nature of Presenting Problem: Patient is a 81 year old female who presents with chest pain. States nausea, shortness of breath and cough with chest pain. Reports symptoms started today. Denies radiation of pain. History of chronic bronchitis. (Joanie Perez) Review of Systems - Adult - REVIEW OF SYSTEMS - ADULT Constitutional: reports: no symptoms reported. denies: chills, fever, fatique Eyes: reports: no symptoms reported Ears, Nose, Mouth & Throat: reports: no symptoms reported Cardiovascular: reports: see HPI, chest pain. denies: heart murmur, palpitations Respiratory: reports: see HPI, cough, shortness of breath. denies: wheezing Gastrointestinal: reports: see HPI, nausea. denies: abdominal pain, vomiting Genitourinary: reports: no symptoms reported Musculoskeletal: reports: no symptoms reported Integumentary: reports: no symptoms reported Neurological: reports: no symptoms reported Psychiatric: reports: no symptoms reported Endocrine: reports: no symptoms reported Hematologic/Lymphatic: reports: no symptoms reported Allergic/Immunologic: reports: no symptoms reported All Other Systems: Reviewed and Negative <Joanie Perez - Last Filed: 01/19/19 15:28> Past History - Adult - PAST MEDICAL HISTORY-ADULT Review of Records: reports: Old Records Reviewed, Social history reviewed & non-contributory. Major Childhood Illnesses: reports: denies history Cardiovascular: reports: HTN, hyperlipidemia Respiratory: reports: asthma, bronchitis Gastrointestinal: reports: other (constipation) Obstetrical/Gynecological: reports: denies history Genitourinary: reports: denies history Musculoskeletal: reports: denies history Neurological: reports: denies history Endocrine/Immune: reports: Diabetes, thyroid disorder (hypo) Other Conditions: reports: denies history - PRIOR SURGERIES/PROCEDURES Surgical/Procedure History: reports: cholecystectomy, hysterectomy - PRIOR HOSPITALIZATIONS Prior Hospitalizations: reports: none - IMMUNIZATION STATUS Childhood Immunizations: See Nurse Assessment Flu Vaccine: See Nurse Assessment - FAMILY HISTORY Family History: reviewed, not pertinent - SOCIAL HISTORY Smoking: cigarettes (former) Substance Use: denies <Joanie Perez - Last Filed: 01/19/19 15:28> Physical Exam-General - PHYSICAL EXAM-ADULT Initial Vital Signs Reviewed: Yes - CONSTITUTIONAL General Appearance: alert, no apparent distress. negative: lethargic - HEAD, EARS, NOSE, MOUTH & THROAT HENMT: normocephalic/atraumatic, moist mucous membranes. negative: angioedema - RESPIRATORY Respiratory: chest non-tender, lungs clear, normal breath sounds. negative: crackles, rales - CARDIOVASCULAR Cardiovascular: normal peripheral pulses, regular rate, rhythm, systolic murmur. negative: bradycardia - GASTROINTESTINAL (ABDOMEN) Abdominal Exam: normal bowel sounds, non tender, soft. negative: guarding, rebound - MUSCULOSKELETAL Extremity: normal inspection. negative: deformity, erythema - SKIN Integumentary: normal color, normal turgor, warm/dry. negative: diaphoresis, ecchymosis, jaundice - NEUROLOGIC Neurologic: grossly normal. negative: aphasia, facial droop - PSYCHIATRIC Psych/Mental Status: normal mood/affect, oriented x 3. negative: anxious, paranoid <Joanie Perez - Last Filed: 01/19/19 15:28> - HEART Score HEART Score: History: Slightly Suspicious HEART Score: ECG: Non-Specific Repolarization Disturbance/LBBB/PM HEART Score: Age: > or = 65 Years HEART Score: Risk Factors for Atherosclerotic Disease: 1 or 2 Risk Factors HEART Score: Troponin: < or = Normal Limit Total HEART Score:: 4 <Pao Glez - Last Filed: 01/19/19 16:56> Progress - PLAN OF CARE/RESULTS Result Diagrams: 01/19/19 14:10 01/19/19 14:10 - EKG 1 Time of EKG reading by physician:: 13:59 EKG Read and Signed by:: Sharon Gonzales EKG Interpretation (*Must complete 3 of following elements*): Abnormal Rate: 93 Rhythm: normal sinus rhythm [place]: normal QRS: LBB (incomplete) IN Interval: normal Comments: possible left atrial enlargement; nonspecific T wave abnormality. - XRAY 1 XRAY Study: Chest Impression: See EMR Report ( EXAM: CHEST-2 VIEWS HISTORY: CP TECHNIQUE: Two views COMPARISON: 08/24/2018 FINDINGS: The lungs are hyperexpanded. The heart is not enlarged. The vessels are small. There are no infiltrates. No pleural effusions. Nodule in the mid left lung with scarring has an appearance similar to the prior study IMPRESSION: No acute abnormality. Electronically signed by Gagandeep Lema 01/19/2019 2:20 PM 01/19/19 1428 Interpreting Physician: Gagandeep Lema MD Dictated Date/Time: 01/19/19 1415 cc: Joanie Perez; Bashir Aguero MD) - CHANGE OF SHIFT REPORT (ED Provider) 1 Report Given and Care Transferred to:: DR AGUERO Time of Transfer: 15:00 Items Pending: Labs, Other (ADMIT) <Joanie Perez - Last Filed: 01/19/19 15:28> - PLAN OF CARE/RESULTS Result Diagrams: 01/19/19 14:10 01/19/19 14:10 - CONSULTS/PCP/HOSPITALIST Notification #1 *Consult/PCP/Hospitalist*: MD Agata Time Discussed: 16:32 Reason/Comments: Chest pain; HEART score 4 Consult Disposition: Admit <Pao Glez - Last Filed: 01/19/19 16:56> - PLAN OF CARE/RESULTS Progress/Plan/Lab Results: Vital Signs - 8 hr 01/19/19 13:46 Temperature 98.1 F Pulse Rate 87 Respiratory Rate 17 Blood Pressure 129/67 O2 Sat by Pulse Oximetry 98 Laboratory Results - last 24 hr 01/19/19 01/19/19 01/19/19 14:10 14:10 14:10 WBC RBC Hgb Hct MCV MCH MCHC RDW Std Deviation Plt Count MPV Immature Gran % (Auto) Neut % (Auto) Lymph % (Auto) [place] % (Auto) Eos % (Auto) Baso % (Auto) Immature Gran # (Auto) Neut # (Auto) Lymph # (Auto) [place] # (Auto) Eos # (Auto) Baso # (Auto) PT 13.0 INR 0.94 PTT (Actin FS) 32.6 Sodium Potassium Chloride Carbon Dioxide Anion Gap BUN Creatinine Estimated GFR/1.73 m2 BUN/Creatinine Ratio Glucose Calculated Osmolality Calcium Total Bilirubin AST ALT Alkaline Phosphatase Creatine Kinase 135 Troponin T < 0.010 Total Protein Albumin Globulin Albumin/Globulin Ratio 01/19/19 01/19/19 01/19/19 14:10 14:10 16:07 WBC 6.44 RBC 4.62 Hgb 12.9 Hct 37.0 MCV 80.1 L MCH 27.9 MCHC 34.9 RDW Std Deviation 15.0 H Plt Count 270 MPV 9.2 Immature Gran % (Auto) 0.2 Neut % (Auto) 76.6 H Lymph % (Auto) 14.3 L [place] % (Auto) 7.3 Eos % (Auto) 1.1 Baso % (Auto) 0.5 Immature Gran # (Auto) 0.01 Neut # (Auto) 4.94 Lymph # (Auto) 0.92 L [place] # (Auto) 0.47 Eos # (Auto) 0.07 Baso # (Auto) 0.03 PT INR PTT (Actin FS) Sodium 136 Potassium 4.8 Chloride 99 Carbon Dioxide 26 Anion Gap 12 BUN 14 Creatinine 0.8 Estimated GFR/1.73 m2 > 60 BUN/Creatinine Ratio 18 Glucose 161 H Calculated Osmolality 276 Calcium 9.5 Total Bilirubin 0.30 AST 12 ALT 7 L Alkaline Phosphatase 111 H Creatine Kinase 131 Troponin T Total Protein 7.1 Albumin 4.4 Globulin 3.0 Albumin/Globulin Ratio 2.0 01/19/19 16:07 WBC RBC Hgb Hct MCV MCH MCHC RDW Std Deviation Plt Count MPV Immature Gran % (Auto) Neut % (Auto) Lymph % (Auto) [place] % (Auto) Eos % (Auto) Baso % (Auto) Immature Gran # (Auto) Neut # (Auto) Lymph # (Auto) [place] # (Auto) Eos # (Auto) Baso # (Auto) PT INR PTT (Actin FS) Sodium Potassium Chloride Carbon Dioxide Anion Gap BUN Creatinine Estimated GFR/1.73 m2 BUN/Creatinine Ratio Glucose Calculated Osmolality Calcium Total Bilirubin AST ALT Alkaline Phosphatase Creatine Kinase Troponin T < 0.010 Total Protein Albumin Globulin Albumin/Globulin Ratio Orders Category Date Time Status Admit - [facility] Routine AdmDCTranf 01/19/19 16:53 Active Activity - Up Ad Elly ORDERED Care 01/19/19 16:53 Active Call Admitting on Arrival AT ADMISSION Care 01/19/19 16:53 Active [facility]ine Loc DIRECTED Care 01/19/19 16:53 Active Vital Signs Order ORDERED Care 01/19/19 16:53 Active Z-Document. for Tele Applied ORDERED Care 01/19/19 16:53 Active Heart Healthy Diet Diet 01/19/19 16:54 Active CHEST-2 VIEWS [RAD] Stat Exams 01/19/19 14:05 Completed CBC WITH ELECTRONIC DIFF [HEME] Stat Lab 01/19/19 14:10 Completed CK PROFILE [SP CHEM] Stat Lab 01/19/19 14:10 Completed CK PROFILE [SP CHEM] Stat Lab 01/19/19 16:07 Completed COMPREHENSIVE METABOLIC PANEL [CHEM] Stat Lab 01/19/19 14:10 Completed PROTIME WITH INR [COAG] Stat Lab 01/19/19 14:10 Completed PTT [COAG] Stat Lab 01/19/19 14:10 Completed TROPONIN T Stat Lab 01/19/19 14:10 Completed TROPONIN T Stat Lab 01/19/19 16:07 Completed 0.9% Sodium Chloride Inj [Ns] 1,000 ml Med 01/19/19 16:53 Active IV 75 mls/hr Acetaminophen [Tylenol] Med 01/19/19 16:53 Active 650 mg PO Q6H PRN PRN Telemetry [OM.EQ] Routine Oth 01/19/19 16:53 Active EKG [EKG] Stat Ther 01/19/19 14:05 Draft EKG [EKG] Stat Ther 01/19/19 15:54 Ordered Transfer/Admit Order [TRANSFER] Routine Transfer 01/19/19 16:54 Ordered Lab results, imaging results, and plan of care discussed with patient and yokasta freitas who agree with and verbalize understanding. Patient agrees with plan for admission for observation of chest pain. (Pao Glez) Departure <Joanie Perez - Last Filed: 01/19/19 15:28> - Departure Date of Disposition Decision: 01/19/19 Time of Disposition Decision: 16:32 Certified Medical Emergency: Emergent - Critical Care Note This patient required my direct & personal management of CC.: No <Pao Glez - Last Filed: 01/19/19 16:56> - Departure DIAGNOSIS: Shortness of breath Chest pain Qualifiers: Chest pain type: unspecified Qualified Code(s): R07.9 - Chest pain, unspecified Disposition: ADMITTED INPATIENT 09 Condition: Stable Referrals and Follow-Ups: Bashir Aguero MD [Primary Care Provider] - Attestation - Physician/ DELPHINE Attestation Patient care was provided by Advanced Practice Provider:: Yes Advanced Practice Provider:: Joanie Perez Advanced Practice Provider documentation review:: The Mid-level provider doc umentation, treatment plan and medical decision making was reviewed by the physician who agrees with all treatment and medical decision making by the P. The physician spent face to face time with patient:: No Advanced Practice Provider documentation review:: Supervising physician onsite and consulted in the evaluation and care of this patient. The physician did not have a face to face encounter with the patient. <Joanie Perez - Last Filed: 01/19/19 15:28> This chart was documented by the indicated scribe, (Deidre Skaggs, El) and accurately reflects the services I performed and decisions made by me, Alanis Perez CRNP, as attested by the provider's signature.
[2019-01-19 15:07] LABS: AGAP 12; ALBUMIN 4.4 g/dL (3.5-5.0); ALKALINE PHOSPHATASE 111 U/L (32-104); BUN 14 mg/dL (8-22); CALCIUM 9.5 mg/dL (8.8-10.2); CHLORIDE 99 mmol/L (98-107); COSMO 276; CREATININE 0.8 mg/dL (0.5-0.9); ESTIMATED GFR > 60; GLUCOSE 161 mg/dL (70-104); GOT 12 U/L (10-30); GPT 7 U/L (10-36); POTASSIUM 4.8 mmol/L (3.5-5.1); SODIUM 136 mmol/L (136-145); TCO2 26 mmol/L (25-35); TOTAL PROTEIN 7.1 g/dL (6.3-8.3)
[2019-01-19] MEDS ORDERED: NS 1,000 ML IV ONE (16:53)
[2019-01-19] MEDS ORDERED: TYLENOL PO PRN (16:53)
--- NOTE | 2019-01-19 17:04 | EKG Report ---
Test Performed on : 01/19/2019 4:43:55 PM Test Reason : REPEAT Blood Pressure : / mmHG Vent. Rate : 094 BPM Atrial Rate : 094 BPM P-R Int : 188 ms QRS Dur : 118 ms QT Int : 398 ms P-R-T Axes : 052 -26 060 degrees QTc Int : 497 ms Normal sinus rhythm. Possible Left atrial enlargement Incomplete left bundle branch block Prolonged QT Abnormal ECG When compared with ECG of 19-JAN-2019 13:59, (Unconfirmed) T wave inversion no longer evident in Lateral leads Unconfirmed Result
[2019-01-19 20:46] LABS: BILIRUBIN URINE NEGATIVE (NEGATIVE); BLOOD URINE NEGATIVE (NEGATIVE); CLARITY CLEAR (CLEAR); COLOR YELLOW; KETONE URINE NEGATIVE (NEGATIVE); LEUKOCYTES URINE 2+ (NEGATIVE); NITRITE URINE NEGATIVE (NEGATIVE); PH URINE 6.5; PROTEIN URINE NEGATIVE (NEGATIVE); SP GRAVITY URINE 1.005; UROBILINOGEN URINE NORMAL
[2019-01-19 20:52] LABS: URINE BACTERIA 2+ /HFP; URINE CAST NONE SEEN /LPF; URINE CRYSTAL NONE SEEN /HPF; URINE EPITHELIAL CELLS >10 /HPF (<10); URINE RBC <10 /HPF (<10); URINE SOURCE CLEAN CATCH; URINE YEAST NONE SEEN /HPF
[2019-01-19] MEDS ORDERED: VENTOLIN HFA INH PRN (21:32)
[2019-01-19] MEDS ORDERED: ATIVAN PO SCH (21:45)
--- NOTE | 2019-01-19 23:43 | EKG Report ---
Test Performed on : 01/19/2019 11:35:42 PM Test Reason : CP Blood Pressure : / mmHG Vent. Rate : 081 BPM Atrial Rate : 081 BPM P-R Int : 204 ms QRS Dur : 128 ms QT Int : 424 ms P-R-T Axes : 063 -26 062 degrees QTc Int : 492 ms Normal sinus rhythm. Left bundle branch block Abnormal ECG When compared with ECG of 19-JAN-2019 16:43, (Unconfirmed) No significant change was found Confirmed by Bashir Parmar MD ([id number]) on 01/23/2019 6:24:53 PM
[2019-01-20] MEDS ORDERED: SYNTHROID PO SCH ×2 (06:00)
[2019-01-20 08:23] LABS: AMYLASE 60 U/L (20-200); LIPASE 45 U/L (13-60)
--- NOTE | 2019-01-20 08:33 | EKG Report ---
Test Performed on : 01/20/2019 07:45:10 AM Test Reason : CP Blood Pressure : / mmHG Vent. Rate : 090 BPM Atrial Rate : 090 BPM P-R Int : 182 ms QRS Dur : 126 ms QT Int : 408 ms P-R-T Axes : 065 -33 065 degrees QTc Int : 499 ms Normal sinus rhythm. Left axis deviation Left bundle branch block Abnormal ECG When compared with ECG of 19-JAN-2019 23:35, (Unconfirmed) No significant change was found Confirmed by Bashir Parmar MD ([id number]) on 01/23/2019 6:22:47 PM
[2019-01-20] MEDS ORDERED: G.I. COCKTAIL PO ONE (08:34)
[2019-01-20] MEDS ORDERED: VENTOLIN HFA INH PRN (08:42)
[2019-01-20] MEDS ORDERED: CRESTOR PO SCH (09:00)
[2019-01-20] MEDS ORDERED: KLOR-CON PO SCH (09:00)
[2019-01-20] MEDS ORDERED: AMARYL PO SCH (09:00)
[2019-01-20] MEDS ORDERED: COZAAR PO SCH (09:00)
[2019-01-20] MEDS ORDERED: DEPO-MEDROL IM ONE (13:43)
[2019-01-20] MEDS ORDERED: XYLOCAINE-MPF 1% INJ ONE (13:44)
[2019-01-20 15:38] VITALS: BP 114/63
--- NOTE | 2019-02-05 14:12 | HISTORY AND PHYSICAL ---
HISTORY OF PRESENT ILLNESS: This is an office patient of [facility] who presented to the emergency room complaining of chest pain associated with some nausea, shortness of breath and a cough. Symptoms started the day prior to her presentation. Denies any radiation of pain. She has a history of chronic bronchitis. ALLERGIES: She is allergic to sulfa drugs. MEDICATIONS: She is on Cozaar 100 daily, Crestor 10 daily, albuterol 2 inhalations p.r.n. as needed, glimepiride 1 mg, levothyroxine 125, potassium 20 mg each day, and lorazepam 0.25 nightly at bedtime. She says that these pains are mild. They started the morning of her presentation and persisted through the day until she was seen. They were associated with light activity. She has had some nausea and shortness of breath. She denies any previous symptoms, but she has had previous symptoms of chest pain that have been worked up and have been negative. REVIEW OF SYSTEMS: She denies any fever, chills or fatigue. She has steadily been losing weight. Has a little issue perhaps with swallowing. Eyes: No change in visual acuity, irritative finding on her lids or her sclerae. PERRL. Ears, nose and throat: No pharyngitis, sinusitis or otitis. Cardiovascular: She has had atypical chest pains associated with palpitations and non palpitations. Respiratory: She has a cough, short of breath. Denies any significant wheezing. Gastrointestinal: She has been nauseated but no belly pain, no vomiting, although she is sort of tender in the epigastrium. No melena. No hematochezia. Genitourinary: No polyuria, pyuria, hematuria, OAB symptoms. Musculoskeletal: No significant joint inflammations or alterations. Skin clear of lesions and rashes. Neurologic: Symmetric. Denies any headache, migraines. She is getting a little bit forgetful. Endocrine: No heat or cold intolerance. She has been losing weight, not sure why. Hematologic/lymphatic. Denies any blood clots. No history of anemia. Allergies: No significant asthma. She has had an issue of cough off and on for some years. PAST MEDICAL HISTORY: She has a history of asthma and bronchitis, hypertension, dyslipidemia, hypothyroidism and diabetes. Denies any significant issues. She is status post cholecystectomy, hysterectomy. SOCIAL HISTORY: She is a former smoker for many years. Denies any substance abuse. Lives with her family. PHYSICAL EXAMINATION: VITAL SIGNS: At the time of admission, her temperature was 98, pulse was 87, respiratory rate 17, blood pressure 129/67, O2 saturation was 98%. Her heart score was a 4. HEENT: Head was normocephalic. PERRLA. EOMs intact. Sclerae clear. Nares patent. Oropharynx negative. NECK: Supple. Bounding carotids without thyromegaly. Midline trachea. No thyromegaly. No lymphadenopathy. CHEST: Thin, bony. No consolidative findings. Diminished breath sounds. ABDOMEN: Scaphoid. No hepatosplenomegaly. No CVA tenderness. EXTREMITIES: Negative for cyanosis, clubbing or edema. NEUROLOGICAL: Intact. DIAGNOSTIC DATA: Her CBC on admission was negative. Comp was negative. Random blood sugar was 161. Her EKG showed a left bundle. Chest x-ray showed hyperexpanded lungs. Heart size was not enlarged. Vessels were small. No infiltrates. No effusion. A nodule in the midlung with scarring, has appearance to a previous study. EKG otherwise negative. ADMITTING DIAGNOSES: 1. Atypical chest pain. 2. Hypertension. 3. Dyslipidemia. 4. Thyroid hormone replacement. 5. History of diabetes. 6. History of asthma. cc: Bashir Parmar MD
--- NOTE | 2019-02-05 15:23 | DISCHARGE SUMMARY ---
ADMISSION DATE: 01/19/2019 DISCHARGE DATE: 01/20/2019 VITAL SIGNS: She was afebrile, pulses were in the 90s, respiratory rate 90, blood pressures were not significantly elevated. LABORATORY DATA: White count 6,440, hematocrit was 37, and platelet count was 270,000. Coags: INR was 0.94, PT ws 32.6. Chemistries: Electrolytes were normal, BUN 14, creatinine 0.8, glucose 161, calcium 9.5, total bilirubin 0.3. Liver functions normal. CK 131 and 107. Lipase 45. Amylase 60. Her troponin was negative. Urinalysis showed 2+ white cells, 10-20 WBCs, greater than 10 epithelial cells, 2+ bacteria, positive glucose. Her microbiology: No growth was evident. IMAGING: Chest x-ray was negative. HOSPITAL COURSE: She was admitted for chest pain rule out, which she did. EKG did not show any significant findings. Enzymes were negative. She has very atypical chest pain, relieved by Miracle mouthwash and GI cocktail. It was triggered some by eating quickly thereafter. I do not think this is coronary artery disease. I think it is more of a reflux disease and disorder. We will continue to follow her as an outpatient. cc: Bashir Parmar MD
== END 2019-01-20 19:40 | disposition home or self-care (01) | DRG 392 ==
LOC: P.ED 13:41 → P.MED 17:48 → P.MEDSURG 18:04
PROVIDERS: ADMIT Internal Medicine; ATTEND Internal Medicine